=== PATIENT | female | born 1995 | race Caucasian/White ===

== ENCOUNTER 2024-04-22 18:45 | Emergency (ER) | payer SELFPAY ==
[~2024-04-22] VITALS: Ht 162.6 cm; Wt 70.0 kg
[2024-04-22 18:47] VITALS: O2SAT 100
[2024-04-22 19:56] LABS: HEMATOCRIT. 36.3 % (36.0-48.0); HEMOGLOBIN. 11.4 g/dL (12.0-16.0); MEAN CORPUSCULAR HEMOGLOBIN 25.1 pg (28.0-32.0); MEAN CORPUSCULAR HGB CONC 31.4 g/dL (31.0-37.0); MEAN CORPUSCULAR VOLUME 79.9 fL (81.0-99.0); MEAN PLATELET VOLUME 10.2 fl (7.4-10.4); PLATELET 211 x1000/uL (130-400); RED BLOOD CELL COUNT 4.55 mill/uL (4.2-5.4); RED CELL DISTRIBUTION WIDTH 20.8 % (11.6-14.6); WHITE BLOOD COUNT 8.9 x1000/uL (4.5-11.0)
[2024-04-22 19:58] LABS: DIFFERENTIAL COMMENT 1
[2024-04-22 20:05] LABS: CHLORIDE 106 mEq/L (98-107); POTASSIUM 3.9 mEq/L (3.5-5.1); SODIUM 139 mEq/L (136-145)
[2024-04-22 20:06] LABS: CALCIUM 9.6 mg/dL (8.7-10.4); CARBON DIOXIDE 24 mEq/L (21-32)
[2024-04-22 20:11] LABS: CREATININE 0.5 mg/dL (0.6-1.0); GLUCOSE 94 mg/dL (70-105); UREA NITROGEN BLOOD 6 mg/dL (9-23)
[2024-04-22 20:12] LABS: HCG SCREEN NEGATIVE
[2024-04-22 20:13] LABS: ALANINE AMINOTRANSFERASE 20 IU/L (10-49); ALBUMIN 4.2 g/dL (3.2-4.8); ASPARTATE AMINOTRANSFERASE 27 IU/L (<34); BILIRUBIN DIRECT 0.1 mg/dL (<=3.0); BILIRUBIN TOTAL 0.5 mg/dL (0.1-1.0); PROTEIN TOTAL 7.3 g/dL (6.0-8.3)
[2024-04-22 20:18] LABS: ANISOCYTOSIS 2+; GIANT PLATELETS 1+; MICROCYTOSIS 1+; PLATELET ESTIMATE NORMAL
[2024-04-22 21:16] LABS: TROPONIN I HIGH SENSITIVITY 4 ng/L (3.0-34)
[2024-04-22] MEDS: HYDROCODONE/ACETAMINOPHEN 5/325MG TABLET PO ONE (21:58)
[2024-04-22 22:25] VITALS: BP 110/60; PULSE 67; RESP 16
[2024-04-22] MEDS: IBUPROFEN 600MG TABLET PO NR (22:25)
[2024-04-22 22:51] LABS: CLARITY URINE CLEAR (CLEAR); COLOR URINE YELLOW (YELLOW); GLUCOSE URINE NEGATIVE (NEGATIVE); KETONES URINE TRACE (NEGATIVE); LEUKOCYTE ESTERASE URINE TRACE (NEGATIVE); NITRITE URINE NEGATIVE (NEGATIVE); OCCULT BLOOD URINE NEGATIVE (NEGATIVE); PH URINE 7.5 (4.5-8.0); PROTEIN URINE NEGATIVE (NEGATIVE); SPECIFIC GRAVITY URINE 1.013 (1.005-1.030); UROBILINOGEN URINE 0.2 E.U./dL (0.2-1.0)
[2024-04-22 22:59] LABS: *AMPHETAMINES SCREEN URINE NEGATIVE (NEGATIVE); *BARBITURATES SCREEN URINE NEGATIVE (NEGATIVE); *BENZODIAZEPINES SCREEN URINE PRESUMPTIVE POSITIVE (NEGATIVE); *COCAINE SCREEN URINE NEGATIVE (NEGATIVE); CANNABINOID URINE SCREEN NEGATIVE (NEGATIVE); ECSTASY MDMA SCREEN URINE NEGATIVE (NEGATIVE); METHADONE URINE SCREEN NEGATIVE (NEGATIVE); OPIATES URINE SCREEN NEGATIVE (NEGATIVE); PHENCYCLIDINE URINE SCREEN NEGATIVE (NEGATIVE)
[2024-04-22 23:12] LABS: BACTERIA URINE TRACE; RBC URINE NONE SEEN /hpf (0-2); SQUAMOUS EPITHELIAL CELL URINE RARE /lpf (RARE/1+); WBC URINE 0-2 /hpf (0-2)
== END 2024-04-22 23:39 | disposition home or self-care (01) ==
LOC: ER 18:45
DX: R55 Syncope and collapse (principal); R53.1 Weakness; R11.0 Nausea; R42 Dizziness and giddiness
CPT/HCPCS: 36415; 80048; 80076; 80305; 80307; 81003; 82542; 84484; 84703; 85025; 93005; 99284